=== PATIENT | female | born 1955 | race Caucasian/White ===

== ENCOUNTER 2017-11-30 18:13 | Emergency (ER) | payer OTHER ==
[2017-11-30 18:18] VITALS: TEMP 37.2
[2017-11-30] MEDS ORDERED: LEVO125T5 PO (18:40)
[2017-11-30] MEDS ORDERED: ACET-1256 PO (18:40)
--- NOTE | 2017-11-30 19:26 | DIAGNOSTIC IMAGING REPORT ---
LEFT KNEE 3 VIEWS HISTORY: Fall, L knee pain COMPARISON: None. FINDINGS: Fracture involving the medial tibial plateau which extends into the tibial spines and medial aspect of the lateral tibial plateau. The medial tibial plateau fracture demonstrates up to 7 mm of depression and 5 mm of posterior displacement. The fracture slightly comminuted. Moderate lipohemarthrosis. No dislocation. No radiopaque foreign bodies. IMPRESSION: 1. Slightly comminuted and depressed fracture involving the medial tibial plateau which extends into the medial aspect of the lateral tibial plateau. 2. Moderate lipohemarthrosis. Electronically signed by: Sanjay Santamaria M.D. 11/30/2017 7:25 PM Dictated Date/Time: 11/30/2017 7:23 PM
--- NOTE | 2017-11-30 19:50 | EMERGENCY ROOM VISIT NOTE ---
ED Visit Note First contact with patient: 18:20 The patient was seen and examined with Robert Trent PA-C. I agree with the history, physical and findings. Please see the note for disposition and details.
--- NOTE | 2017-11-30 21:33 | DIAGNOSTIC IMAGING REPORT ---
CT OF THE LEFT KNEE WITHOUT CONTRAST CLINICAL HISTORY: Left knee pain following fall. Left tibial plateau fracture. COMPARISON STUDY: Left knee radiographs performed earlier today. TECHNIQUE: Axial images of the left knee were obtained without IV contrast. Sagittal and coronal reconstructions were viewed. FINDINGS: There is a moderate sized left knee joint effusion with lipohemarthrosis. No acute fracture of the distal left femur or the patella is noted. There is no proximal left fibular fracture. Note is made of an oblique fracture through the medial tibial plateau which is displaced 9 mm. Multiple associated bone fragments are present. Fracture extends to the tibial spines and involves the medial aspect pf the lateral tibial plateau. The posterior medial aspect of the lateral tibial plateau is depressed 5 mm. Fracture extends to the medial tibial plateau. The medial aspect of the medial tibial plateau is depressed 5 mm as well. IMPRESSION: 1. Acute comminuted mildly displaced proximal left tibial fracture which involves the medial and lateral tibial plateaus. Posterior medial aspect of lateral tibial plateau depressed 5 mm. Medial aspect of the medial tibial plateau depressed 5 mm. 2. Moderate-sized left knee joint effusion with lipohemarthrosis Electronically signed by: Arvind Bryant M.D. 11/30/2017 9:32 PM Dictated Date/Time: 11/30/2017 9:23 PM
[2017-11-30] MEDS ORDERED: OXYCODONE IR HOME PACK PO STA (21:57)
[2017-11-30] MEDS ORDERED: OXYC1TAB3 PO (22:02)
--- NOTE | 2017-11-30 22:03 | EMERGENCY ROOM VISIT NOTE ---
History First contact with patient: 18:20 Chief Complaint: LEG PAIN,LEG INJURY Stated Complaint: POSSIBLE BROKEN LEG,LEFT History of Present Illness The patient is a 62 year old female who presents to the Emergency Room via private vehicle accompanied by family with complaints of "possible broken leg, left". The patient states that on November 24, 6 days ago she accidentally fell off of her porch. She injured her left knee. She notes pain at the medial aspect. She rates the pain as a 6/10. She denies numbness in the left leg but does note it feels cold to her and slightly tingly. Review of Systems A complete 6-point Review of Systems was discussed with the patient, with pertinent positives and negatives listed in the History of Present Illness. All remaining Review of Systems questions can be considered negative unless otherwise specified. Past Medical/Surgical History No pertinent Family History Non contributory Social History Smoking Status: Never Smoker Pt. lives in [place], [place] Current/Historical Medications Scheduled Acetaminophen (Tylenol), 1,000 MG PO PRN UD Levothyroxine Sodium (Levothyroxine Sodium), 1 TAB PO DAILY Scheduled PRN Oxycodone Ir (Roxicodone Ir), 1-2 TAB PO Q4H PRN for Pain Physical Exam Vital Signs Date Time Temp Pulse Resp B/P (MAP) Pulse Ox O2 Delivery O2 Flow Rate FiO2 11/30/17 22:25 72 20 124/81 98 11/30/17 20:54 78 20 120/65 98 Room Air 11/30/17 18:18 37.2 88 16 150/75 96 Room Air Physical Exam VITAL SIGNS - Vital signs and nursing notes were reviewed. Stable. GENERAL - 62-year-old female appearing her stated age who is in no acute distress. Communicates well with provider and answers questions appropriately. SKIN - Without rashes. Skin overlying L knee is slightly edematous, but non erythematous and is appropriate color and temperature to palpation. EXTREMITIES - No clubbing or peripheral cyanosis. No pretibial edema present. Pulses intact in the L lower extremity with neurovascular status intact. Tenderness to medial/superior L knee joint. Skin intact. No blistering. Medical Decision & Procedures ER Provider Diagnostic Interpretation: LEFT KNEE 3 VIEWS HISTORY: Fall, L knee pain COMPARISON: None. FINDINGS: Fracture involving the medial tibial plateau which extends into the tibial spines and medial aspect of the lateral tibial plateau. The medial tibial plateau fracture demonstrates up to 7 mm of depression and 5 mm of posterior displacement. The fracture slightly comminuted. Moderate lipohemarthrosis. No dislocation. No radiopaque foreign bodies. IMPRESSION: 1. Slightly comminuted and depressed fracture involving the medial tibial plateau which extends into the medial aspect of the lateral tibial plateau. 2. Moderate lipohemarthrosis. Electronically signed by: Sanjay Santamaria M.D. 11/30/2017 7:25 PM Dictated Date/Time: 11/30/2017 7:[address] OF THE LEFT KNEE WITHOUT CONTRAST CLINICAL HISTORY: Left knee pain following fall. Left tibial plateau fracture. COMPARISON STUDY: Left knee radiographs performed earlier today. TECHNIQUE: Axial images of the left knee were obtained without IV contrast. Sagittal and coronal reconstructions were viewed. FINDINGS: There is a moderate sized left knee joint effusion with lipohemarthrosis. No acute fracture of the distal left femur or the patella is noted. There is no proximal left fibular fracture. Note is made of an oblique fracture through the medial tibial plateau which is displaced 9 mm. Multiple associated bone fragments are present. Fracture extends to the tibial spines and involves the medial aspect pf the lateral tibial plateau. The posterior medial aspect of the lateral tibial plateau is depressed 5 mm. Fracture extends to the medial tibial plateau. The medial aspect of the medial tibial plateau is depressed 5 mm as well. IMPRESSION: 1. Acute comminuted mildly displaced proximal left tibial fracture which involves the medial and lateral tibial plateaus. Posterior medial aspect of lateral tibial plateau depressed 5 mm. Medial aspect of the medial tibial plateau depressed 5 mm. 2. Moderate-sized left knee joint effusion with lipohemarthrosis Electronically signed by: Arvind Bryant M.D. 11/30/2017 9:32 PM Dictated Date/Time: 11/30/2017 9:23 PM Medications Administered Medications (Trade) Dose Ordered Sig/Yared Route Start Time Stop Time Status Last Admin Dose Admin Oxycodone HCl (Roxicodone Immediate Rel 5MG Home Pack) 1 homepack UD STAT PO 11/30/17 21:57 11/30/17 21:58 DC 11/30/17 22:11 1 HOMEPACK Medical Decision Patient was seen and evaluated as above. She presents to us today status post fall with left knee pain. X-rays were obtained. Ice packs were ordered for the knee. She declined pain medication. X-ray reveals a tibial plateau fracture. Patient also notes a history that she was taking Tylenol this past Monday through Monday, as much as 1000 mg every 4 hours. I informed her that this is more than the recommended dosage and can be quite serious. She notes that she has no abdominal pain, and to my inspection is not jaundice. She notes that she has past Monday decreased the dosage. I discussed this with the attending physician. In the absence of any symptoms, other than her knee pain I do not believe that blood work is necessary. I then spoke with the orthopedic surgeon regarding the knee and he recommended CT, and then called me back and recommended cast padding, Lee wrap, and then a knee immobilizer with nonweightbearing of that extremity. This will be via a walker which the patient already has. I will give her a a prescription of oxycodone for her pain. She was given a 24-hour supply from here with the remainder sent to the pharmacy. She was neurovascularly intact throughout her stay. The patient appears stable for outpatient management. She is to call Dr. Yu's office first thing tomorrow morning to be seen per his request. Phone number and address provided. They were educated upon management, educated upon worrisome symptoms in which to return, had questions answered prior to discharge , and were discharged home in good condition. No red flags in the PDMP. In the evaluation and treatment of this patient, the following differential diagnoses were considered: Patellar Fracture, Tibial Plateau Fracture, Distal Femur Fracture, ACL Injury, PCL Injury, Collateral Ligament Injury, Pes Anserine Bursitis, Maisonneuve Fracture. Impression Primary Impression: Tibial plateau fracture, left Departure Information Dispostion Home / Self-Care Condition GOOD Prescriptions Oxycodone Ir (Roxicodone Ir) 5 Mg Tab 1-2 TAB PO Q4H Y for Pain, #18 TAB For Initial Treatment Prov: Robert Trent PA-C 11/30/17 Referrals No Doctor, Assigned (PCP) Francis Yu M.D. Patient Instructions My [facility] Additional Instructions You have been treated in the Emergency Department for Left Knee Pain. . You have been prescribed Oxy IR to be used for pain control. This is a narcotic medication. You cannot drive or consume alcohol while on this medicine. This medicine should only be used for pain that cannot be controlled with over-the- counter pain medicines. For pain control, you can use the following [id number] medicines : - Regular strength (325mg/tab) Tylenol (acetaminophen) 2 tabs every 4-6 hours as needed. Do not exceed 12 tablets in a 24 hour period. Avoid taking more than 3 grams (3000 mg) of Tylenol per day. This includes any other sources of acetaminophen you may take on a regular basis. - Regular strength (200 mg/tab) Advil (ibuprofen) 1-2 tabs every 4-6 hours as needed. Do not exceed a dose of 3200 mg per day. Please apply ice to this region 30minutes at at time, every 3 hours. Keep your toes above your nose to help with swelling. You have been provided the number for an Orthopaedic Surgeon (bone doctor). You should call this number as soon as possible to establish a follow-up visit from today's Emergency Department visit. Keep the knee brace in place until told to remove by Orthopedics. Use the walker you have been provided to keep ALL weight off of the knee. Return to the Emergency Department if your current symptoms worsen despite treatment course outlined above.
[2017-11-30 22:25] VITALS: BP 124/81; PULSE 72; O2SAT 98
== END 2017-11-30 22:27 | disposition home or self-care (01) ==
LOC: C.EDB 18:16 → C.EDD 22:27
DX: S82.142A Displaced bicondylar fracture of left tibia, initial encounter for closed fracture (principal); W17.89XA Other fall from one level to another, initial encounter; Y92.018 Other place in single-family (private) house as the place of occurrence of the external cause